=== PATIENT | male | born 1935 | race Caucasian/White ===

== ENCOUNTER 2016-10-06 14:22 | Outpatient (CLI) | payer MEDICARE, OTHER ==
[2016-10-06 14:46] LABS: Prothrombin Time 25.7 SEC (12.0-14.7)
== END 2016-10-06 14:23 | disposition home or self-care (01) ==
LOC: HPCALD 14:22
PROVIDERS: ATTEND Family Medicine
DX: I48.91 Unspecified atrial fibrillation (principal)
CPT/HCPCS: 36415; 85610

== ENCOUNTER 2016-12-14 10:18 | Outpatient (CLI) | payer MEDICARE, OTHER ==
[2016-12-14 10:54] LABS: Prothrombin Time 22.8 SEC (12.0-14.7)
== END 2016-12-14 10:19 | disposition home or self-care (01) ==
LOC: HPCALD 10:18
PROVIDERS: ATTEND Family Medicine
DX: I48.91 Unspecified atrial fibrillation (principal)
CPT/HCPCS: 36415; 85610

== ENCOUNTER 2017-01-27 10:57 | Outpatient (CLI) | payer MEDICARE, OTHER ==
[2017-01-27 11:51] LABS: Prothrombin Time 32.5 SEC (12.0-14.7)
== END 2017-01-27 10:58 | disposition home or self-care (01) ==
LOC: HPCALD 10:57
PROVIDERS: ATTEND Family Medicine
DX: I48.91 Unspecified atrial fibrillation (principal)
CPT/HCPCS: 36415; 85610

== ENCOUNTER 2017-02-24 13:42 | Outpatient (CLI) | payer MEDICARE, OTHER ==
[2017-02-24 13:58] LABS: INR-International Normal Ratio 3.2
== END 2017-02-24 13:43 | disposition home or self-care (01) ==
LOC: HPCALD 13:42
PROVIDERS: ATTEND Family Medicine
DX: I48.91 Unspecified atrial fibrillation (principal)
CPT/HCPCS: 36415; 85610

== ENCOUNTER 2017-03-18 10:16 | Outpatient (CLI) | payer MEDICARE, OTHER ==
[2017-03-18 10:46] LABS: Prothrombin Time 23.4 SEC (12.0-14.7)
== END 2017-03-18 10:17 | disposition home or self-care (01) ==
LOC: HPCALD 10:16
PROVIDERS: ATTEND Family Medicine
DX: I48.2 Chronic atrial fibrillation (principal)
CPT/HCPCS: 36415; 85610

== ENCOUNTER 2017-05-06 13:30 | Outpatient (CLI) | payer MEDICARE, OTHER ==
[2017-05-06 13:58] LABS: Prothrombin Time 23.5 SEC (12.0-14.7)
== END 2017-05-06 13:31 | disposition home or self-care (01) ==
LOC: HPCALD 13:30
PROVIDERS: ATTEND Family Medicine
DX: I48.91 Unspecified atrial fibrillation (principal)
CPT/HCPCS: 36415; 85610

== ENCOUNTER 2018-10-02 12:13 | Outpatient (CLI) | payer MEDICARE, OTHER ==
--- NOTE | 2018-10-02 19:01 | RAD ---
LEFT KNEE TWO VIEWS: 10/02/2018 FINDINGS: Medial joint space narrowing is present. No fracture, large joint effusion, or large osteophytes cou ld be seen. There are some tiny patellofemoral osteophytes. IMPRESSION: Minor degenerative changes, predominantly narrowing of the medial compartment. POS: HOME
== END 2018-10-02 12:14 | disposition home or self-care (01) ==
LOC: BURRAD 12:13
PROVIDERS: ATTEND Family Medicine
DX: M25.562 Pain in left knee (principal); M17.12 Unilateral primary osteoarthritis, left knee